=== PATIENT | female | born 1945 | race Caucasian/White ===

== ENCOUNTER 2017-01-02 05:39 | Emergency (ER) | payer OTHER ==
[~2017-01-02] VITALS: Ht 157.5 cm; Wt 66.9 kg
[2017-01-02 06:04] LABS: EOSINOPHIL (%) 2.6 % (0-5); EOSINOPHIL COUNT 0.1 K/uL (0-0.3); HEMATOCRIT 41.2 % (36.0-46.0); IMMATURE GRANULOCYTE (%) 0.6 % (0.0-0.7); IMMATURE GRANULOCYTE COUNT 0.3 K/uL; LYMPHOCYTE COUNT 1.4 K/uL (1.0-2.8); MCH 31.5 PG (29.0-34.0); MCV 95.4 FL (83-99); MEAN PLAT.VOLUME 9.4 uM^3 (9.5-12.4); MONOCYTE COUNT 0.8 K/uL (0-0.8); NEUTROPHIL (%) 56.6 % (45-76); NEUTROPHIL COUNT 3.1 K/uL (1.8-6.4); PLATELET COUNT 267 K/uL (156-360); RBC DIS.WIDTH-CV 13.1 % (11.8-14.6); RBC DIS.WIDTH-SD 43.2 % (39-53); RED BLOOD COUNT 4.32 M/uL (3.80-5.20); WHITE BLOOD COUNT 5.5 K/uL (4.1-10.2)
[2017-01-02 06:15] LABS: CHLORIDE 105 mEq/L (99-109); POTASSIUM 3.8 mEq/L (3.7-5.4); SODIUM 142 mEq/L (136-147)
[2017-01-02 06:17] LABS: GLUCOSE 98 mg/dL (70-99)
[2017-01-02 06:18] LABS: ANION GAP 10 MEQ/L (2-14)
[2017-01-02 06:19] LABS: TOTAL BILIRUBIN 0.7 mg/dL (0.0-1.0)
[2017-01-02 06:21] LABS: ALKALINE PHOSPHATASE 70 IU/L (3-129); GFR ESTIMATE (CALCULATED) 58 mL/min/
[2017-01-02 06:22] LABS: UREA NITROGEN (BUN) 20 mg/dL (9-23)
[2017-01-02 06:24] LABS: LIPASE 9 U/L (1.0-51.0)
[2017-01-02 06:25] LABS: TROP-I INTERPRETATION NEGATIVE; TROPONIN-I 0.01 ng/mL (0.0-0.30)
[2017-01-02 11:23] LABS: ADD MIUA? YES; BILIRUBIN NEGATIVE; BLOOD MODERATE; COLOR YELLOW ((YELLOW)); GLUCOSE (STRIP) NEGATIVE; KETONES 40; LEUKOCYTES LARGE; NITRITE NEGATIVE; PROTEIN (STRIP) 30; SPECIFIC GRAVITY 1.021 (1.000-1.030)
[2017-01-02 11:54] LABS: BACTERIA 3+ /HPF; BUDDING YEAST 2+; EPITHELIAL CELLS 4+ /HPF; MUCUS 2+ /LPF; UCUL ADDED? YES; WHITE BLOOD CELLS TNTC /HPF (0-5); WHITE BLOOD CELLS CLUMP MOD /HPF (0-5)
[2017-01-02] MEDS ORDERED: LEVAQUIN500 MG PO (12:05)
[2017-01-02 13:35] VITALS: BP 112/65
== END 2017-01-02 13:40 | disposition home or self-care (01) ==
LOC: EME 05:39
PROVIDERS: Emergency Medicine
DX: N39.0 Urinary tract infection, site not specified (principal); S40.012A Contusion of left shoulder, initial encounter; W18.30XA Fall on same level, unspecified, initial encounter; Y92.192 Bathroom in other specified residential institution as the place of occurrence of the external cause; F03.90 Unspecified dementia, unspecified severity, without behavioral disturbance, psychotic disturbance, mood disturbance, and anxiety; E78.5 Hyperlipidemia, unspecified; I10 Essential (primary) hypertension
CPT/HCPCS: 70450; 71010; 73030; 80053; 80164; 81003; 83690; 83880; 84484; 85025; 87086; 93005; 99281; 99285